=== PATIENT | male | born 1960 | race American Indian/Alaskan Native ===

== ENCOUNTER → 2022-09-26 10:18 | Outpatient (CLI) | payer OTHER, SELFPAY ==
[2022-09-26 12:04] LABS: COVID19 -Nasal RAPID Negative (Negative)
== END ==
PROVIDERS: PCP Family Medicine; Visit Provider Surgery
DX: Z01.812 Encounter for preprocedural laboratory examination (principal); Z20.822 Contact with and (suspected) exposure to COVID-19
CPT/HCPCS: 87635; C9803

== ENCOUNTER 2022-09-27 14:18 | Day surgery (SDC) | payer OTHER, SELFPAY ==
[2022-09-27] VITALS (8 sets, daily range): BP systolic 73–123; BP diastolic 41–69; PULSE 52–70; RESP 10–16; TEMP 36.4–36.6; O2SAT 99–100; BMI 23.6
--- NOTE | 2022-09-27 | PATH_ITS ---
[facility] Accession Number: [id number] . 01 Material submitted: . PART A: gastrointestinal site - ANTRUM PART B: gastrointestinal site - STOMACH PART C: colon - PROXIMAL TRANSVERSE POLYPS PART D: colon - SIGMOID POLYP PART E: rectum - RECTAL POLYPS . 01 Diagnosis: A-B: Stomach, Antrum, Body, Biopsies: Helicobacter pylori gastritis. Negative for intestinal metaplasia. Negative for dysplasia and malignancy. . C. Proximal Transverse Colon, Polyps, Biopsies: Tubular adenomas. . D. Sigmoid Colon, Polyp, Biopsy: Tubular adenoma. . E. Rectum, Polyps, Biopsies: Tubular adenoma in two of three fragments. [facility] 10/01/2022 1218 Local . 01 Electronically signed: . Altagracia Sanchez MD, Pathologist NPI- [id number] . 01 Gross description: . Part A: ANTRUM: Received in formalin are 4 fragment(s) of [place], soft tissue measuring 0.4 x 0.1 x 0.1 cm to 0.3 x 0.1 x 0.1 cm submitted entirely in 1 cassette(s) Part B: STOMACH: Received in formalin are 3 fragment(s) of [place], soft tissue measuring 0.3 x 0.1 x 0.1 cm to 0.1 x 0.1 x 0.1 cm submitted entirely in 1 cassette(s) Part C: PROXIMAL TRANSVERSE POLYPS: Received in formalin are multiple fragment(s) of [place], soft tissue measuring 2.0 x 0.5 x 0.1 cm in aggregate submitted entirely in 1 cassette(s) Part D: SIGMOID POLYP: Received in formalin is 1 fragment(s) of [place], soft tissue measuring 0.8 x 0.6 x 0.5 cm which is bisected and submitted entirely in 1 cassette(s) Part E: RECTAL POLYPS: Received in formalin are 3 fragment(s) of [place], soft tissue measuring 0.7 x 0.5 x 0.1 cm to 0.5 x 0.1 x 0.1 cm submitted entirely in 1 cassette(s) /CPE 09/29/2022 1103 Local . 01 Pathologist provided ICD-10: D12.3, D12.5, D12.8, D64.9, B96.81 . 01 CPT . 504992, 312403, 283691, 021567, 488776 Specimen Comment: A courtesy copy of this report has been sent to [phone] Performed at: 01 [facility] Cyt[facility] [address] [facility], [place], [place] [id number] MD Dennis Corea MD Phone: [phone]
--- NOTE | 2022-09-27 16:09 | PM.HP.1 ---
History of Present Illness History of Present Illness Date Patient Seen: 09/27/22 Time Patient Seen: 16:09 Chief complaint: SDC Narrative: Tommy is here for his EGD and colonoscopy. See the office note from July for details. Patient History Family & Social History Social History: household members spouse Tobacco & Substance use: Smoking Status Never smoker alcohol intake frequency holiday/special occasion Substance Use Type does not use Meds Home Medications and Allergies Home Medications Medication Instructions Recorded Confirmed Type fexofenadine 180 mg tablet 180 mg PO Q DAY ##0 06/30/12 09/27/22 History sodium,potassium,mag sulfates 17.5 See Rx Instructions PO .COMPLEX 08/29/22 09/27/22 Rx gram-3.13 gram-1.6 gram oral soln #354 mL (Suprep Bowel Prep Kit) atorvastatin 10 mg tablet 10 mg PO BEDTIME 09/27/22 09/27/22 History insulin NPH isoph U-100 human 100 12 unit SUBCUT BID 09/27/22 09/27/22 History unit/mL (3 mL) subcutaneous pen (Humulin N NPH U-100 Insulin KwikPen) lisinopril 20 mg tablet 20 mg PO DAILY 09/27/22 09/27/22 History metformin 850 mg tablet 850 mg PO TID 09/27/22 09/27/22 History Allergies Allergy/AdvReac Type Severity Reaction Status Date / Time No Known Drug Allergies Allergy Verified 09/27/22 15:21 Exam Vital Signs (past 8 hours): - 09/27/22 15:39 Temperature 97.6 F Pulse Rate 70 Respiratory Rate 16 Blood Pressure 123/69 Pulse Oximetry 100 Oxygen Delivery Method Room Air Oxygen Delivery Method Room Air Const General: No acute distress Resp Effort & Inspection: normal respiratory effort Assessment & Plan Assessment and plan (1) Anemia: Qualifiers: Anemia type: unspecified type Qualified Code(s): D64.9 - Anemia, unspecified Status: Acute Plan We will proceed with EGD and colonoscopy. Reviewed risks and benefits and he would like to proceed. Time Spent With Patient Critical Care time: I spent a total of [] minutes of critical care time on this patient's care today; this time is exclusive of procedural time.
--- NOTE | 2022-09-27 17:01 | PM.OP.EC ---
Operative Date/Time/Diagnoses Date of procedure: 09/27/22 Time of procedure: 17:01 Pre-op diagnosis: Anemia Post-op diagnosis: same Procedure & Clinicians Study performed: EGD and colonoscopy Same procedure as scheduled: Yes Surgeon: Bryn Mcneil Procedure Notes Procedure in detail: Surgeon: Bryn Mcneil MD Anesthesia: Dr. Mullen Procedure in detail: A timeout was performed. A bite blocked was placed and monitors were attached to the patient. The patient was positioned in the supine position. Sedation was administered Dr. Mullen. Once the patient was sedated the endoscope was inserted through the bite block and passed through the esophagus and stomach and into the duodenum. The duodenum appeared normal. The scope was withdrawn into the duodenal bulb which was also normal. The scope was withdrawn into the stomach. The antrum showed mild antritis and random biopsies were taken from the antrum. Body of the stomach showed moderate gastritis and random biopsies were taken from body of the stomach. The endoscope was retroflexed and no hiatal hernia was seen. The endoscope was straightned and withdrawn into the esophagus. There were no abnormalities in the esophagus. Findings: Mild antritis and moderate gastritis Next we repositioned the patient for a colonoscopy. A digital rectal exam was performed and was normal. The colonoscope was inserted and advanced to the cecum. The appendiceal orifice was identified and photographed. The scope was slowly withdrawn over greater than 6 minutes. There were 3 small polyps in the proximal transverse colon, the largest of which was about 8 mm and the others were about 5 mm. They were all removed with cold forceps. Next a pedunculated polyp was seen in the sigmoid colon and removed with a hot snare. This polyp was about 1.2 cm and was removed with the [employer]. There were 2 small 5 mm polyps in the rectum removed with cold snare. The scope was retroflexed in the rectum and no other abnormalities were noted. Findings: 3 polyps in the proximal transverse colon ranging from 5 mm to 8 mm, a 1.2 cm pedunculated polyp in the sigmoid colon and 2 5 mm polyps in the rectum EBL: 10 mL Scope withdrawal time: 25 Sedation minutes: 39 Post-procedure Disposition: PACU
[2022-09-27] MEDS: LACTATED RINGERS 1,000 ML 42 ML IV (17:03)
== END 2022-09-27 17:54 | disposition home or self-care (01) ==
PROVIDERS: PCP Family Medicine; Referring Provider Surgery; Visit Provider Surgery
PROC: 0DJ08ZZ Inspection of Upper Intestinal Tract, Via Natural or Artificial Opening Endoscopic (ICD-10-PCS; CPT 43235; principal; 2022-09-27 16:00)
PROC: 0DJD8ZZ Inspection of Lower Intestinal Tract, Via Natural or Artificial Opening Endoscopic (ICD-10-PCS; CPT 45378; 2022-09-27 16:00)
DX: D64.9 Anemia, unspecified (principal); K29.60 Other gastritis without bleeding; B96.81 Helicobacter pylori [H. pylori] as the cause of diseases classified elsewhere; D12.3 Benign neoplasm of transverse colon; D12.5 Benign neoplasm of sigmoid colon; D12.8 Benign neoplasm of rectum
CPT/HCPCS: 45385; 45380; 43239; 82962; J2250; J2704; J3010